=== PATIENT | male | born 1985 | race African-American/Black ===

== ENCOUNTER 2018-12-08 18:07 | Emergency (ER) | payer OTHER ==
[2018-12-08 18:33] VITALS: BP 150/95
--- NOTE | 2018-12-08 18:46 | UC ---
Skin Complaint HPI - HPI Summary HPI Summary: 2 day history of inflamed sore area on the left lower leg, which his girlfriend tried to squeeze out without success. Has had similar infections in the past, but none within the past year. No fever and no drainage. He has hypertension, but he tends to miss his medications frequently because he cannot remember to take them. - History of Current Complaint Chief Complaint: UCSkin Time Seen by Provider: 12/08/18 18:36 Stated Complaint: SKIN COMPLAINT Hx Obtained From: Patient Onset/Duration: Gradual Onset, Lasting Days - 2 Timing: Constant Onset Severity: Mild Current Severity: Mild Pain Intensity: 0 Location: Discrete Aggravating Factor(s): Touch Alleviating Factor(s): Nothing Associated Signs & Symptoms: Positive: Negative - Allergy/Home Medications Allergies/Adverse Reactions: Allergies Allergy/AdvReac Type Severity Reaction Status Date / Time No Known Allergies Allergy Verified 12/08/18 18:34 Home Medications: Home Medications Blood Pressure Medication 1 tab DAILY 12/08/18 [History Confirmed 12/08/18] PMH/Surg Hx/FS Hx/Imm Hx Cardiovascular History: Hypertension - Surgical History Surgical History: Yes Surgery Procedure, Year, and Place: hand - Family History Known Family History: Positive: Hypertension - mother, Other - father was murdered when he was 2yo - Social History Occupation: Employed Full-time Lives: With Family Alcohol Use: Occasionally Substance Use Type: Marijuana Substance Use Comment - Amount & Last Used: occasional Smoking Status (MU): Light Every Day Tobacco Smoker Type: Cigarettes Amount Used/How Often: 3 cigs daily Review of Systems All Other Systems Reviewed And Are Negative: Yes Constitutional: Positive: Negative Skin: Positive: Other - lower leg tenderness Eyes: Positive: Negative ENT: Positive: Negative Respiratory: Positive: Negative Cardiovascular: Positive: Other - undertreated hypertension due to non adherence to med regimen. Took his med today, but only 2 or 3 days in the past 7. Gastrointestinal: Positive: Negative Genitourinary: Positive: Negative Motor: Positive: Negative Neurovascular: Positive: Negative Musculoskeletal: Positive: Negative, Calf Tenderness Neurological: Positive: Headache - mild today Psychological: Positive: Negative Is Patient Immunocompromised?: No Physical Exam Triage Information Reviewed: Yes Appearance: Well-Appearing, Pain Distress - mild Vital Signs: Initial Vital Signs Temp 99 F 12/08/18 18:29 Pulse 97 12/08/18 18:29 Resp 17 12/08/18 18:29 BP 150/95 12/08/18 18:29 Pulse Ox 99 12/08/18 18:29 Vital Signs Reviewed: Yes ENT: Positive: Normal ENT inspection, Pharynx normal Neck: Positive: Supple, Nontender, No Lymphadenopathy Respiratory: Positive: Lungs clear, Normal breath sounds Cardiovascular: Positive: RRR, No Murmur Neurological: Positive: Alert, Muscle Tone Normal Psychological Exam: Normal Skin Exam: Other - 4 x 3 cm area of induration and erythema in the lower medial calf, about 10 cm superior and medial to the medial malleolus. No pointing, no definite abscess formation. Course/Dx - Course Course Of Treatment: cellulitis, possible early abscess left lower leg--will begin cephalrxin, begin hot compressing. - Differential Diagnoses - Skin Complaint Differential Diagnoses: Abscess, Cellulitis - Diagnoses Provider Diagnosis: Cellulitis of left lower leg Discharge - Sign-Out/Discharge Documenting (check all that apply): Patient Departure All imaging exams completed and their final reports reviewed: No Studies - Discharge Plan Condition: Stable Disposition: HOME Prescriptions: Cephalexin CAP* [Keflex 500 CAP*] 500 mg PO QID #20 cap Patient Education Materials: Cellulitis (ED) Referrals: Rciky Dillon MD [Primary Care Provider] - Additional Instructions: Tomorrow morning, orange picker the antibiotic and continue the use of cephalexin 500mg four times daily. Use hot compresses to the area. This might form a small abscess, but overall I don't think it is likely that you will need to have this drained. If an abscess forms, return for incision and drainage. You can use acetaminophen as needed for control of pain. To ensure that your blood pressure gets controlled, you might try setting your phone to alarm once daily. - Billing Disposition and Condition Condition: STABLE Disposition: Home
[2018-12-08] MEDS ORDERED: Cephalexin CAP* 500 MG PO ONE (18:50)
== END 2018-12-08 19:07 | disposition home or self-care (01) ==
LOC: UCCORT 18:07
DX: L03.116 Cellulitis of left lower limb (principal); I10 Essential (primary) hypertension; F17.210 Nicotine dependence, cigarettes, uncomplicated
CPT/HCPCS: 99202; A9270-GY; G0463